=== PATIENT | male | born 1975 | race African-American/Black ===

== ENCOUNTER 2023-01-03 15:58 | Observation (INO) | payer OTHER ==
[2023-01-03 16:06] VITALS: BMI 30.4
[2023-01-03 18:12] LABS: BASO % 0.7 % (0-2.0); EOS % 0.7 % (0-4.5); HEMATOCRIT 38.7 % (35.4-49); HEMOGLOBIN 13.2 GM/dL (11.7-16.9); LYMPH % 38.2 % (8-40); MCH 31.5 pg (25.7-33.7); MCHC 34.2 g/dl (32.0-35.9); MEAN CELL VOLUME 91.9 fl (80-96); MEAN PLT VOLUME 10.2 fl (7.5-11.1); MONO % 11.8 % (3.8-10.2); NEUT % 48.6 % (42.8-82.8); PLATELET COUNT 179 10^3/uL (134-434); RBC 4.21 M/mm3 (4.00-5.60); RDW 12.4 % (11.9-15.9); WHITE BLOOD COUNT 7.3 K/mm3 (4.0-10.0)
[2023-01-03 18:24] LABS: POTASSIUM 4.2 mmol/L (3.5-5.1)
[2023-01-03 18:26] LABS: ALBUMIN 3.9 g/dl (3.4-5.0); CALCIUM 10.1 mg/dL (8.5-10.1)
[2023-01-03 18:27] LABS: MAGNESIUM 2.1 mg/dL (1.8-2.4)
[2023-01-03 18:29] LABS: CREATININE 1.4 mg/dL (0.55-1.3)
[2023-01-03 18:31] LABS: BILIRUBIN,TOTAL 0.4 mg/dL (0.2-1); TOT PROT 7.8 g/dl (6.4-8.2)
[2023-01-03 18:49] LABS: PROTHROMBIN TIME (PATIENT) 12.7 SEC (9.7-13.0)
[2023-01-03 18:50] LABS: ACTIVATED PTT 34.8 SECONDS (25.2-36.5); INR 1.1 (0.83-1.09)
[2023-01-04] MEDS: LACTATED RINGERS SOLUTION 1,000 ML/1,000 ML INFUS.BAG IV SCH ×2 (01:53→14:25)
[2023-01-04] MEDS: HYDROCORTISONE 2.5% TOPICAL CREAM 30 GM TUBE TP SCH ×3 (01:54→21:45)
[2023-01-04 08:09] LABS: HEMATOCRIT 36.2 % (35.4-49); HEMOGLOBIN 12.8 GM/dL (11.7-16.9); MCH 32.5 pg (25.7-33.7); MCHC 35.4 g/dl (32.0-35.9); MEAN CELL VOLUME 91.8 fl (80-96); MEAN PLT VOLUME 10.9 fl (7.5-11.1); PLATELET COUNT 152 10^3/uL (134-434); RBC 3.94 M/mm3 (4.00-5.60); RDW 12.2 % (11.9-15.9); WHITE BLOOD COUNT 6.1 K/mm3 (4.0-10.0)
[2023-01-04 08:15] LABS: POTASSIUM 4.6 mmol/L (3.5-5.1)
[2023-01-04 08:19] LABS: CALCIUM 9.5 mg/dL (8.5-10.1)
[2023-01-04 08:20] LABS: ALBUMIN 3.6 g/dl (3.4-5.0); BLOOD UREA NITROGEN 10.7 mg/dL (7-18)
[2023-01-04 08:23] LABS: CREATININE 1.1 mg/dL (0.55-1.3); PHOSPHOROUS 3.7 mg/dL (2.5-4.9)
[2023-01-04 08:24] LABS: BILIRUBIN,TOTAL 0.7 mg/dL (0.2-1); TOT PROT 7.2 g/dl (6.4-8.2)
[2023-01-04] MEDS: POLYETHYLENE GLYCOL (HEALTHYLAX) 3350 17 GM PACKET PO SCH (09:56)
[2023-01-04 16:27] LABS: HEMATOCRIT 38.7 % (35.4-49); HEMOGLOBIN 13.3 GM/dL (11.7-16.9); MCH 31.7 pg (25.7-33.7); MCHC 34.4 g/dl (32.0-35.9); MEAN CELL VOLUME 92.1 fl (80-96); MEAN PLT VOLUME 10.7 fl (7.5-11.1); PLATELET COUNT 196 10^3/uL (134-434); RDW 12.4 % (11.9-15.9); WHITE BLOOD COUNT 8.1 K/mm3 (4.0-10.0)
[2023-01-04 20:47] LABS: ANISOCYTOSIS 0; MACROCYTOSIS 0
[2023-01-05 08:55] LABS: BASO % 0.5 % (0-2.0); EOS % 0.9 % (0-4.5); HEMATOCRIT 36.9 % (35.4-49); HEMOGLOBIN 13.1 GM/dL (11.7-16.9); LYMPH % 45.6 % (8-40); MCH 32.5 pg (25.7-33.7); MCHC 35.6 g/dl (32.0-35.9); MEAN CELL VOLUME 91.4 fl (80-96); MEAN PLT VOLUME 11.3 fl (7.5-11.1); MONO % 6.6 % (3.8-10.2); NEUT % 46.4 % (42.8-82.8); PLATELET COUNT 162 10^3/uL (134-434); RBC 4.03 M/mm3 (4.00-5.60); RDW 11.9 % (11.9-15.9); WHITE BLOOD COUNT 7.4 K/mm3 (4.0-10.0)
[2023-01-05] MEDS: LACTATED RINGERS SOLUTION 1,000 ML/1,000 ML INFUS.BAG IV SCH (08:58)
[2023-01-05] MEDS: POLYETHYLENE GLYCOL (HEALTHYLAX) 3350 17 GM PACKET PO SCH ×3 (09:04→21:43)
[2023-01-05] MEDS: HYDROCORTISONE 2.5% TOPICAL CREAM 30 GM TUBE TP SCH ×2 (09:04→21:42)
[2023-01-05 09:07] LABS: POTASSIUM 4.4 mmol/L (3.5-5.1)
[2023-01-05 09:08] LABS: CALCIUM 9.5 mg/dL (8.5-10.1)
[2023-01-05 09:09] LABS: BLOOD UREA NITROGEN 11.8 mg/dL (7-18)
[2023-01-05 09:12] LABS: CREATININE 1.1 mg/dL (0.55-1.3)
[2023-01-06] MEDS: POLYETHYLENE GLYCOL (HEALTHYLAX) 3350 17 GM PACKET PO SCH ×3 (06:18→21:56)
[2023-01-06] MEDS: HYDROCORTISONE 2.5% TOPICAL CREAM 30 GM TUBE TP SCH ×2 (09:40→21:57)
[2023-01-06] MEDS ORDERED: PEG 3350/NA SULF BICARB CL/KCL 4000 ML SOLN.RECON PO ONE (10:00)
[2023-01-06] MEDS ORDERED: BISACODYL 5 MG TABLET.DR (FP) PO ONE (20:00)
[2023-01-07] MEDS: POLYETHYLENE GLYCOL (HEALTHYLAX) 3350 17 GM PACKET PO SCH ×3 (05:42→21:06)
[2023-01-07 08:47] LABS: BASO % 0.6 % (0-2.0); EOS % 0.8 % (0-4.5); HEMATOCRIT 39.1 % (35.4-49); HEMOGLOBIN 13.7 GM/dL (11.7-16.9); LYMPH % 38.9 % (8-40); MCH 32.3 pg (25.7-33.7); MCHC 35.1 g/dl (32.0-35.9); MEAN PLT VOLUME 10.8 fl (7.5-11.1); MONO % 7.7 % (3.8-10.2); PLATELET COUNT 186 10^3/uL (134-434); RBC 4.24 M/mm3 (4.00-5.60); RDW 12.1 % (11.9-15.9); WHITE BLOOD COUNT 6.8 K/mm3 (4.0-10.0)
[2023-01-07 08:48] LABS: INR 1.17 (0.83-1.09); PROTHROMBIN TIME (PATIENT) 13.6 SEC (9.7-13.0)
[2023-01-07 09:06] LABS: POTASSIUM 3.9 mmol/L (3.5-5.1)
[2023-01-07 09:10] LABS: BLOOD UREA NITROGEN 7.8 mg/dL (7-18)
[2023-01-07] MEDS: HYDROCORTISONE 2.5% TOPICAL CREAM 30 GM TUBE TP SCH ×2 (09:12→21:06)
[2023-01-07 09:13] LABS: CREATININE 1.2 mg/dL (0.55-1.3)
[2023-01-07] MEDS ORDERED: LIDOCAINE HCL 2% JELLY 10 ML CARTRIDGE ONE (12:35)
[2023-01-07] MEDS ORDERED: KETOROLAC TROMETHAMINE 30 MG/1 ML VIAL ONE (12:35)
[2023-01-07] MEDS ORDERED: LIDOCAINE HCL 2% JELLY 10 ML CARTRIDGE TP ONE (12:41)
[2023-01-07] MEDS: IBUPROFEN 400 MG TABLET (FP) PO SCH ×2 (14:40→19:55)
[2023-01-07] MEDS: LIDOCAINE HCL 2% JELLY 10 ML CARTRIDGE RC SCH ×2 (16:00→21:06)
[2023-01-07] MEDS ORDERED: LIDOCAINE HCL 2% JELLY 10 ML CARTRIDGE PR SCH (22:00)
[2023-01-08] MEDS: IBUPROFEN 400 MG TABLET (FP) PO SCH ×3 (00:39→13:25)
[2023-01-08] MEDS ORDERED: ACETAMINOPHEN 1000 MG/100 ML BAG IVPB ONE (01:21)
[2023-01-08] MEDS: LIDOCAINE HCL 2% JELLY 10 ML CARTRIDGE RC SCH ×3 (06:34→13:25)
[2023-01-08] MEDS ORDERED: oxyCODONE HCL 5 MG TABLET PO PRN ×2 (08:34)
[2023-01-08 09:57] VITALS: RESP 20
[2023-01-08] MEDS: POLYETHYLENE GLYCOL (HEALTHYLAX) 3350 17 GM PACKET PO SCH (10:01)
[2023-01-08] MEDS: HYDROCORTISONE 2.5% TOPICAL CREAM 30 GM TUBE TP SCH (10:02)
[2023-01-08 14:56] VITALS: BP 139/94; PULSE 65; TEMP 98.7
[2023-01-08] MEDS ORDERED: DOCUSATE SODIUM 100 MG CAPSULE (FP) PO SCH (22:00)
== END 2023-01-08 16:25 | disposition home or self-care (01) ==
LOC: JER 15:58 → JERBED 23:00 → J5S 01-04 01:33 → J8W 01-05 18:43
PROVIDERS: ADMIT Internal Medicine; ATTEND Nurse Practitioner Acute Care
PROC: 0DBK8ZX Excision of Ascending Colon, Via Natural or Artificial Opening Endoscopic, Diagnostic (ICD-10-PCS; principal; 2023-01-03)
PROC: 06LY8CC Occlusion of Hemorrhoidal Plexus with Extraluminal Device, Via Natural or Artificial Opening Endoscopic (ICD-10-PCS; 2023-01-03)
DX: K64.8 Other hemorrhoids (principal); K92.2 Gastrointestinal hemorrhage, unspecified; K62.89 Other specified diseases of anus and rectum
CPT/HCPCS: 0241U-QW; 36415; 74174-TC; 80048; 80053; 82272; 82728; 83540; 83550; 83690; 83735; 84100; 85025; 85027; 85610; 85730; 86850; 86900; 86901; 88305-TC; 93005; 93010; 99285-25; G0378